=== PATIENT | female | born 1985 | race Caucasian/White ===

== ENCOUNTER 2020-12-05 10:06 | Outpatient (CLI) | payer OTHER, SELFPAY ==
[2020-12-05 10:57] LABS: Alanine Aminotransferase 20 U/L (4-35); Aspartate Amino Transferase 24 U/L (14-36)
== END 2020-12-05 10:07 | disposition home or self-care (01) ==
PROVIDERS: Visit Provider Podiatrist Foot & Ankle Surgery
DX: B35.1 Tinea unguium (principal)
CPT/HCPCS: 36415; 84450; 84460

== ENCOUNTER 2022-04-13 14:10 | Emergency (ER) | payer OTHER, SELFPAY ==
[2022-04-13 15:27] VITALS: BP 130/85; PULSE 88; RESP 16; TEMP 37.1; O2SAT 99
--- NOTE | 2022-04-13 16:06 | ED.FEMALEGU ---
HPI - Female Genitourinary General Chief complaint: Urogenital-Female Stated complaint: painful urination,blood in urine Time Seen by Provider: 04/13/22 16:06 Source: patient and RN notes reviewed Mode of arrival: ambulatory Limitations: no limitations History of Present Illness HPI Narrative: 36 y/o female presented for c/o burning at the end of urination and blood in urine for 2 days. Reports noting blood on toilet paper. Denies abdominal pain, flank pain, frequency, urgency, nausea, vomiting, diarrhea, fever or chills. Not taking anything for symptoms. Denies history of renal stones. LMP 04/05/22. Related Data Home Medications Medication Instructions Recorded Confirmed famotidine 10 mg tablet (Pepcid AC) 10 mg PO DAILY 03/13/21 04/13/22 melatonin 10 mg capsule 10 mg PO QHS 03/13/21 04/13/22 sertraline 100 mg tablet 100 mg PO DAILY 03/13/21 04/13/22 timolol 0.5 % eye drops 1 drp EACH EYE Q12H 03/13/21 04/13/22 Allergies Allergy/AdvReac Type Severity Reaction Status Date / Time azithromycin Allergy Mild Hives Verified 04/13/22 15:52 terbinafine Allergy Itching Verified 04/13/22 15:52 AMOXICILLIN TRIHYDRATE Allergy Unknown Hives Uncoded 04/13/22 15:52 BUPROPION HCL Allergy Unknown Hives Uncoded 04/13/22 15:52 POTASSIUM CLAVULANATE Allergy Unknown Hives Uncoded 04/13/22 15:52 Review of Systems Review of Systems: CONSTITUTIONAL: Denies body aches, fever, chills, or sweats. CARDIOVASCULAR: Denies chest pain, palpitations, or edema. RESPIRATORY: Denies cough or dyspnea. GASTROINTESTINAL: Denies abdominal pain, nausea, vomiting, or diarrhea. GENITOURINARY: Reports dysuria, frequency, urgency, hematuria, flank pain SKIN: Denies rash, itching, or wounds. MUSCULOSKELETAL: Denies back pain or myalgia. [facility] Past Medical History Medical History Glaucoma Family History Family History Mother Stfzmdn-Lzxfk-Utghmxg syndrome Other Breast cancer Grandparent COPD (chronic obstructive pulmonary disease) Social History Social History Smoking status: Current some day smoker Tobacco type: cigarettes Alcohol intake: current Substance use: never Substance use type: does not use Comments At time of signature, I have reviewed and agree with nursing past medical, surgical, social and family history unless otherwise noted. Please see nursing chart for further information. There is no relevant family history pertinent to the presenting complaint Exam Narrative: GENERAL: Well-appearing and in no acute distress. HEAD: Normocephalic EYES: EOMI. . ENT: Mucous membranes pink and moist. NECK: Normal AROM. Supple. CHEST: Clear to auscultation. HEART: Regular rate and rhythm. ABDOMEN: Soft, nontender, nondistended, normal active bowel sounds. No CVA tenderness SKIN: Warm, dry, no rash. NEURO: Alert and oriented x3. Gait steady. PSYCH: Normal affect. Course Course Emergency Course: Patient is aware of diagnosis, understands and agrees to treatment plan. Anticipatory guidance given. Patient agrees to follow-up as directed and is aware of reasons to seek care at the emergency department. Portions of this record may have been created with voice recognition software Level of Care: Express Care Visit Vital Signs Vital signs: Vital Signs Temperature 98.7 F 04/13/22 15:27 Pulse Rate 88 04/13/22 15:27 Respiratory Rate 16 04/13/22 15:27 Blood Pressure 130/85 04/13/22 15:27 Pulse Oximetry 99 04/13/22 15:27 Temperature 98.7 F 04/13/22 15:27 Pulse Rate 88 04/13/22 15:27 Respiratory Rate 16 04/13/22 15:27 Blood Pressure 130/85 04/13/22 15:27 Pulse Oximetry 99 04/13/22 15:27 Reviewed MDM - Female Genitourinary MDM Narrative Medical decision making narrative: Results of urine dip reviewed with ellen
== END 2022-04-13 16:18 | disposition home or self-care (01) ==
PROVIDERS: Emergency Provider Nurse Practitioner Family; PCP Physician Assistant
DX: R31.9 Hematuria, unspecified (principal); H40.9 Unspecified glaucoma; F17.210 Nicotine dependence, cigarettes, uncomplicated
CPT/HCPCS: 81003; 87077; 87086; 87186; 99213; G0463